=== PATIENT | male | born 1980 | race Caucasian/White ===

== ENCOUNTER 2017-02-04 13:15 | Emergency (ER) | payer OTHER ==
[2017-02-04] MEDS ORDERED: Morphine INJ* 4 MG/ML 1 ML SYRINGE IV ONE ×3 (15:00→20:31)
[2017-02-04] MEDS ORDERED: NS 0.9% 1000 ML* 2,000 ML IV ONE (15:00)
[2017-02-04] MEDS ORDERED: Ondansetron INJ* 2 MG/ML VIAL IV ONE (15:00)
[2017-02-04 15:34] LABS: Hematocrit 47 % (42-52); Hemoglobin 15.7 g/dl (14.0-18.0); Mean Corpuscular HGB Conc 34 g/dl (31-36); Mean Corpuscular Hemoglobin 30 pg (27-31); Mean Corpuscular Volume 90 fL (80-94); Mean Platelet Volume 9 um3 (7.4-10.4); Red Blood Count 5.17 10^6/ul (4.0-5.4); Red Cell Distribution Width 13 % (10.5-15); White Blood Count 12.1 10^3/ul (3.5-10.8)
[2017-02-04 15:49] LABS: BUN/Creatinine Ratio 16.2 (8-20); C Reactive Protein 2.83 mg/L (< 5.00); EGFR African American 167.8 (>60); EGFR Non-African American 130.5 (>60); Globulin 3.1 g/dL (2-4); Potassium 3.9 mmol/L (3.5-5.0); Total Bilirubin 0.6 mg/dL (0.2-1.0); Total Protein 7.1 g/dL (6.4-8.9)
[2017-02-04] MEDS ORDERED: Iohexol 300* (CONTRAST) 10 ML SDV IV ONE (16:00)
--- NOTE | 2017-02-04 18:17 | RAD ---
INDICATION: RIGHT abdomen/flank pain. Blood in stool. Post appendectomy. COMPARISON: November 24, 2011 MRI lumbar sacral spine. TECHNIQUE: Multidetector CT images were obtained from the lung bases to the ischial tuberosities with 150 mL Omnipaque 300 IV and oral contrast. Multiplanar reformation. REPORT: Unremarkable visualized inferior thorax. Unremarkable liver. Mildly distended gallbladder without additional CT finding. Negative for biliary dilatation. Unremarkable pancreas and spleen. Negative for CT abnormality of the upper GI or small bowel. The appendix is not visualized consistent with surgical history. Unremarkable colon with enteric contrast extending to the rectum. Negative for ascites, free air, or significant hernias. Normal adrenal glands. Unremarkable kidneys with symmetric contrast excretion. Unremarkable nondilated ureters. Phlebolith noted adjacent to the distal segment of the RIGHT ureter. Unremarkable urinary bladder and visualized male urogenital structures. Negative for lymphadenopathy. Normal diameter abdominal aorta and iliac arteries. Physiologic distention of the IVC. Degenerative spondylosis and facet joint osteoarthritis most prominent at L4-L5 with resulting moderately severe acquired central canal and bilateral foraminal stenosis. Minimal grade 1 degenerative L4-L5 anterolisthesis. Negative for suspicious focal osseous lesions. IMPRESSION: 1. Post appendectomy. 2. No acute pathologic visceral process of the abdomen or pelvis. 3. Acquired spinal stenosis at L4-L5 with worsening compared with the 2012 MRI.
[2017-02-04 19:21] LABS: Urine Bilirubin Negative (Negative); Urine Glucose Negative (Negative); Urine Nitrite Negative (Negative)
--- NOTE | 2017-02-04 20:36 | ED ---
Aruna Whitney Auryana, scribed for Edmundo Ag MD on 02/04/17 at 1501 . Abdominal Pain/Male - HPI Summary HPI Summary: 36 year old male presents with constant abdominal pain starting 5 days ago. The pain is located at the RUQ/right flank and radiates to the RLQ. Currently the pain is a 9/10. He also has a decreased appetite He denies any fever, chills, scrotal/groin pain, or any hematuria. Per triage patient had "blood in the stool last night" and "uses ibuprofen regularly". PMHx is significant for appendectomy s/p ruptured appendix (as child) and HTN but denies any history of kidney stones. - History of Current Complaint Chief Complaint: EDAbdPain Stated Complaint: ABD PAIN Time Seen by Provider: 02/04/17 14:51 Hx Obtained From: Patient Onset/Duration: Gradual Onset, Still Present Timing: Constant, Lasting Days - 5 Severity Initially: Moderate Severity Currently: Moderate Pain Intensity: 9 Pain Scale Used: 0-10 Numeric Location: Discrete At: RUQ, Flank - right Radiates: Yes Radiates to: RLQ Associated Signs And Symptoms: Positive: Blood in Stool - per triage, Decreased Appetite. Negative: Fever, Urinary Symptoms - Allergies/Home Medications Allergies/Adverse Reactions: Allergies Allergy/AdvReac Type Severity Reaction Status Date / Time Penicillins [PCN] AdvReac Severe Hives Verified 01/19/13 12:30 PMH/Surg Hx/FS Hx/Imm Hx Cardiovascular History: Reports: Hx Hypertension Musculoskeletal History: Reports: Hx Arthritis - Surgical History Surgery Procedure, Year, and Place: appendectomy Infectious Disease History: No Infectious Disease History: Denies: Traveled Outside the [place] in Last 30 Days - Family History Known Family History: Positive: Cardiac Disease - [place] - Social History Occupation: Employed Full-time Lives: With Family Hx Substance Use: No Substance Use Type: Reports: None Hx Tobacco Use: Yes Smoking Status (MU): Light Every Day Tobacco Smoker Review of Systems Constitutional: Negative Negative: Fever, Chills Eyes: Negative ENT: Negative Cardiovascular: Negative Respiratory: Negative Positive: Abdominal Pain, Other - decreased appetite, and per triage - blood in stool Genitourinary: Negative Negative: hematuria Musculoskeletal: Negative Skin: Negative Neurological: Negative Psychological: Normal All Other Systems Reviewed And Are Negative: Yes Physical Exam - Summary Physical Exam Summary: General: well-appearing, moderate pain distress Skin: warm, color reflects adequate perfusion, dry Head: normal Eyes: EOMI, BRITTNEE ENT: normal Neck: supple, nontender Respiratory: CTA, breath sounds present Cardiovascular: RRR Abdomen: soft, Right CVA, RLQ, and RUQ tenderness. Bowel: present - hypoactive Musculoskeletal: normal, strength/ROM intact Neurological: normal, sensory/motor intact, A&O x3 Psychological: affect/mood appropriate Triage Information Reviewed: Yes Vital Signs On Initial Exam: Initial Vitals Temp Pulse Resp BP Pulse Ox 98.7 F 75 20 171/101 98 02/04/17 13:22 02/04/17 13:22 02/04/17 13:22 02/04/17 13:22 02/04/17 13:22 Vital Signs Reviewed: Yes Diagnostics - Vital Signs Vital Signs Temp Pulse Resp BP Pulse Ox 02/04/17 14:46 98.0 F 76 13 129/86 97 02/04/17 13:22 98.7 F 75 20 171/101 98 - Laboratory Lab Results: Lab Results 02/04/17 02/04/17 02/04/17 Range/Units 15:27 15:27 15:27 WBC 12.1 H (3.5-10.8) 10^3/ul RBC 5.17 (4.0-5.4) 10^6/ul Hgb 15.7 (14.0-18.0) g/dl Hct 47 (42-52) % MCV 90 (80-94) fL MCH 30 (27-31) pg MCHC 34 (31-36) g/dl RDW 13 (10.5-15) % Plt Count 190 (150-450) 10^3/ul MPV 9 (7.4-10.4) um3 Neut % (Auto) 67.9 (38-83) % Lymph % (Auto) 22.7 L (25-47) % [place] % (Auto) 6.7 (1-9) % Eos % (Auto) 2.4 (0-6) % Baso % (Auto) 0.3 (0-2) % Absolute Neuts (auto) 8.2 H (1.5-7.7) 10^3/ul Absolute Lymphs (auto) 2.7 (1.0-4.8) 10^3/ul Absolute Monos (auto) 0.8 (0-0.8) 10^3/ul Absolute Eos (auto) 0.3 (0-0.6) 10^3/ul Absolute Basos (auto) 0 (0-0.2) 10^3/ul Absolute Nucleated RBC 0 10^3/ul Nucleated RBC % 0 INR (Anticoag Therapy) 1.01 (0.89-1.11) APTT 29.5 (26.0-36.3) seconds Sodium 137 (133-145) mmol/L Potassium 3.9 (3.5-5.0) mmol/L Chloride 106 (101-111) mmol/L Carbon Dioxide 27 (22-32) mmol/L Anion Gap 4 (2-11) mmol/L BUN 11 (6-24) mg/dL Creatinine 0.68 (0.67-1.17) mg/dL Est GFR ( Amer) 167.8 (>60) Est GFR (Non-Af Amer) 130.5 (>60) BUN/Creatinine Ratio 16.2 (8-20) Glucose 90 (70-100) mg/dL Lactic Acid (0.5-2.0) mmol/L Calcium 9.0 (8.6-10.3) mg/dL Total Bilirubin 0.60 (0.2-1.0) mg/dL AST 15 (13-39) U/L ALT 15 (7-52) U/L Alkaline Phosphatase 43 (34-104) U/L C-Reactive Protein 2.83 (< 5.00) mg/L Total Protein 7.1 (6.4-8.9) g/dL Albumin 4.0 (3.2-5.2) g/dL Globulin 3.1 (2-4) g/dL Albumin/Globulin Ratio 1.3 (1-3) Urine Color Urine Appearance Urine pH (5-9) Ur Specific [place] (1.010-1.030) Urine Protein (Negative) Urine Ketones (Negative) Urine Blood (Negative) Urine Nitrate (Negative) Urine Bilirubin (Negative) Urine Urobilinogen (Negative) Ur Leukocyte Esterase (Negative) Urine Glucose (Negative) 02/04/17 02/04/17 Range/Units 15:27 19:10 WBC (3.5-10.8) 10^3/ul RBC (4.0-5.4) 10^6/ul Hgb (14.0-18.0) g/dl Hct (42-52) % MCV (80-94) fL MCH (27-31) pg MCHC (31-36) g/dl RDW (10.5-15) % Plt Count (150-450) 10^3/ul MPV (7.4-10.4) um3 Neut % (Auto) (38-83) % Lymph % (Auto) (25-47) % [place] % (Auto) (1-9) % Eos % (Auto) (0-6) % Baso % (Auto) (0-2) % Absolute Neuts (auto) (1.5-7.7) 10^3/ul Absolute Lymphs (auto) (1.0-4.8) 10^3/ul Absolute Monos (auto) (0-0.8) 10^3/ul Absolute Eos (auto) (0-0.6) 10^3/ul Absolute Basos (auto) (0-0.2) 10^3/ul Absolute Nucleated RBC 10^3/ul Nucleated RBC % INR (Anticoag Therapy) (0.89-1.11) APTT (26.0-36.3) seconds Sodium (133-145) mmol/L Potassium (3.5-5.0) mmol/L Chloride (101-111) mmol/L Carbon Dioxide (22-32) mmol/L Anion Gap (2-11) mmol/L BUN (6-24) mg/dL Creatinine (0.67-1.17) mg/dL Est GFR ( Amer) (>60) Est GFR (Non-Af Amer) (>60) BUN/Creatinine Ratio (8-20) Glucose (70-100) mg/dL Lactic Acid 1.0 (0.5-2.0) mmol/L Calcium (8.6-10.3) mg/dL Total Bilirubin (0.2-1.0) mg/dL AST (13-39) U/L ALT (7-52) U/L Alkaline Phosphatase (34-104) U/L C-Reactive Protein (< 5.00) mg/L Total Protein (6.4-8.9) g/dL Albumin (3.2-5.2) g/dL Globulin (2-4) g/dL Albumin/Globulin Ratio (1-3) Urine Color Yellow Urine Appearance Clear Urine pH 7.0 (5-9) Ur Specific [place] 1.010 (1.010-1.030) Urine Protein Negative (Negative) Urine Ketones Negative (Negative) Urine Blood Negative (Negative) Urine Nitrate Negative (Negative) Urine Bilirubin Negative (Negative) Urine Urobilinogen Negative (Negative) Ur Leukocyte Esterase Negative (Negative) Urine Glucose Negative (Negative) Result Diagrams: 02/04/17 15:27 02/04/17 15:27 Lab Statement: Any lab studies that have been ordered have been reviewed, and results considered in the medical decision making process. - CT ABD/PEL CT Interpretation: Positive (See Comments) - IMPRESSION: 1. Post appendectomy. 2. No acute pathologic visceral process of the abdomen or pelvis. 3. Acquired spinal stenosis at L4-L5 with worsening compared with the [address] Interpretation Completed By: Radiologist Abdominal Pain Fem Course/Dx - Course Course Of Treatment: NO CRITICAL CARE TIME. DISCUSSED RESULTS WITH PATIENT/ . TENDER TO PALPATION OVER LOW BACK. THE PAIN DOES RADIATE INTO RT BUTTOCK. RX PERCOCET AND FLEXERIL; RETURN IF WORSE. - Diagnoses Provider Diagnoses: Low back pain, Abdominal pain, Flank pain Discharge - Discharge Plan Condition: Stable Disposition: HOME Patient Education Materials: Abdominal Pain (ED), Flank Pain (ED), Back Pain ( ED) Forms: *Work Release Referrals: Selina Hendrix MD [Primary Care Provider] - Additional Instructions: FOLLOW UP WITH YOUR DOCTOR. RETURN TO THE EMERGENCY DEPARTMENT FOR ANY WORSENING OF YOUR CONDITION; PAIN, FEVER, YOU FEEL ILL, WEAKNESS, NUMBNESS OR QUESTIONS OR CONCERNS. The documentation as recorded by the Aruna marin Auryana accurately reflects the service I personally performed and the decisions made by me, Edmundo Ag MD.
[2017-02-04 21:02] VITALS: BP 141/104
== END 2017-02-04 20:58 | disposition home or self-care (01) ==
LOC: ED 13:15
DX: R10.31 Right lower quadrant pain (principal); M54.5 Low back pain; K92.1 Melena
CPT/HCPCS: 36415; 74177; 80053; 81003; 83605; 85025; 85610; 85730; 86140; 96374; 96375; 99282; J2270; J2405; Q9967

== ENCOUNTER 2017-03-01 21:57 | Emergency (ER) | payer OTHER ==
[2017-03-02] MEDS ORDERED: Ketorolac INJ* 60 MG/2 ML VIAL IM ONE (01:02)
[2017-03-02] MEDS ORDERED: Ondansetron ODT TAB* 4 MG PO ONE (01:02)
[2017-03-02] MEDS ORDERED: Methocarbamol TAB* 500 MG PO ONE (01:02)
[2017-03-02] MEDS ORDERED: Dexamethasone TAB* 4 MG PO ONE (01:03)
[2017-03-02] MEDS ORDERED: Morphine INJ* 4 MG/ML 1 ML SYRINGE IM ONE (01:53)
--- NOTE | 2017-03-02 02:57 | ED ---
Back Pain - HPI Summary HPI Summary: 36M presents with back since Thursday. 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 he has history of back pain but this is more generalized. no loss of bowel or bladder or saddle anesthesia. no fever. no pain down the legs. no numbness or tingling. has tried tyenlol. extensive allergy list as everything causes nausea. is able to ambulate fine. - History of Current Complaint Chief Complaint: EDBackInjuryPain Stated Complaint: BACK INJURY Time Seen by Provider: 03/02/17 00:49 Pain Intensity: 10 - Allergies/Home Medications Allergies/Adverse Reactions: Allergies Allergy/AdvReac Type Severity Reaction Status Date / Time Penicillins [PCN] AdvReac Severe Hives Verified 01/19/13 12:30 PMH/Surg Hx/FS Hx/Imm Hx Endocrine/Hematology History: Denies: Hx Diabetes Cardiovascular History: Reports: Hx Hypertension History: Denies: Hx Renal Disease Musculoskeletal History: Reports: Hx Arthritis - Surgical History Surgery Procedure, Year, and Place: appendectomy Infectious Disease History: No Infectious Disease History: Denies: Traveled Outside the [place] in Last 30 Days - Family History Known Family History: Positive: Cardiac Disease - [place] - Social History Alcohol Use: None Hx Substance Use: No Substance Use Type: Reports: None Hx Tobacco Use: Yes Smoking Status (MU): Light Every Day Tobacco Smoker Review of Systems Negative: Fever Negative: Chest Pain Negative: Shortness Of Breath Positive: Myalgia - back All Other Systems Reviewed And Are Negative: Yes Physical Exam Triage Information Reviewed: Yes Vital Signs On Initial Exam: Initial Vitals Temp Pulse Resp BP Pulse Ox 98.6 F 72 22 152/92 97 03/01/17 22:03 03/01/17 22:03 03/01/17 22:03 03/01/17 22:03 03/01/17 22:03 Vital Signs Reviewed: Yes Appearance: Positive: Pain Distress Skin: Positive: Warm, Dry Head/Face: Positive: Normal Head/Face Inspection Eyes: Positive: Normal, EOMI, BRITTNEE, Conjunctiva Clear ENT: Positive: Normal ENT inspection, Pharynx normal, TMs normal Respiratory/Lung Sounds: Positive: Clear to Auscultation, Breath Sounds Present Cardiovascular: Positive: Normal, RRR Musculoskeletal: Positive: Limited @ - back, Other - tenderness across back, neg SLR. good pulses Neurological: Positive: Reflexes Intact - patella Diagnostics - Vital Signs Vital Signs Temp Pulse Resp BP Pulse Ox 03/02/17 02:00 16 03/02/17 00:53 97.9 F 68 16 158/92 98 03/01/17 23:41 98.5 F 73 18 149/97 98 03/01/17 22:03 98.6 F 72 22 152/92 97 - Laboratory Lab Statement: Any lab studies that have been ordered have been reviewed, and results considered in the medical decision making process. - CT back CT Interpretation: Positive (See Comments) - patient status post L4-L5 laminotomoy. disc bulging and posterior element hypertrophy at this level. narros vavanal. MRI necessary CT Interpretation Completed By: Radiologist Back Pain Course/Dx - Course Course Of Treatment: 36M presents with back since Thursday. 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 he has history of back pain but this is more generalized. no loss of bowel or bladder or saddle anesthesia. no fever. no pain down the legs. no numbness or tingling. has tried tyenlol. extensive allergy list as everything causes nausea. is able to ambulate fine. tenderness across back. neg SLR. CT shows narrowing. gave pain medication. patient understands and agrees with plan. - Diagnoses Differential Diagnosis/HQI/PQRI: Positive: Herniated Disc, Strain, Sprain Provider Diagnoses: Back pain Discharge - Discharge Plan Condition: Good Disposition: HOME Prescriptions: oxyCODONE/Acetamin 5/325 MG* [Percocet 5/325 TAB*] 1 tab PO Q8H PRN #9 tab MDD 3 PRN Reason: Pain Patient Education Materials: Back Pain (ED) Referrals: [facility] [place] [facility] [Outside] Selina Hendrix MD [Primary Care Provider] - Additional Instructions: Use ibuprofen or Tylenol for pain every 6 hours, use narcotic for break through pain ice/heat area, move as much as possible Establish care with primary care physician Return to ED if develop any new or worsening symptoms
[2017-03-02] MEDS ORDERED: oxyCODONE/Acetamin 5/325 MG* TAB PO ONE (03:02)
[2017-03-02 03:27] VITALS: BP 150/90
--- NOTE | 2017-03-02 08:06 | RAD ---
HISTORY: Back pain COMPARISONS: MRI dated November 24, 2011, CT of the abdomen and pelvis dated February 04, 2017 TECHNIQUE: Multiple contiguous axial CT scans were obtained of the lumbar spine without intravenous contrast, with coronal and sagittal multiplanar reformations. FINDINGS: SPINAL CANAL: Evaluation of the central canal is limited on CT technique; however, there is no obvious canalicular mass or epidural hemorrhage. ALIGNMENT: The alignment is normal. VERTEBRAL BODIES: There is mild multilevel anterolateral marginal osteophyte formation. JOINTS: There is facet osteoarthritis, most pronounced at L4-L5 and L5-S1 MUSCULATURE: Unremarkable INTERVERTEBRAL DISCS: There is diffuse loss of intervertebral disc height throughout the spine. Vacuum disc phenomenon is noted at L4-L5 AXIAL IMAGES: T12-L1: There is no osseous neural foraminal narrowing or central canal stenosis. L1-L2: There is no osseous neural foraminal narrowing or central canal stenosis. L2-L3: There is no osseous neural foraminal narrowing or central canal stenosis. L3-L4: There is mild disc bulge. There is marginal osteophyte formation at the neural foramina bilaterally. There is bilateral facet hypertrophy. There is moderate right and severe left neural foraminal narrowing. There is mild narrowing of the central canal. L4-L5: There is broad-based disc bulge with a superimposed central disc protrusion measuring 0.5 cm in depth. There is bilateral facet hypertrophy with marginal osteophyte formation at the neural foramina bilaterally. There is severe bilateral neural foraminal narrowing. There is moderate to severe narrowing of the central canal. L5-S1: There is bilateral facet hypertrophy with marginal osteophyte formation at the neural foramina bilaterally. There is moderate bilateral neural foraminal narrowing. There is no significant central canal stenosis. SOFT TISSUES: The visualized soft tissues of the abdomen are unremarkable. OTHER: None IMPRESSION: 1. DEGENERATIVE DISC DISEASE AND OSTEOARTHRITIS. 2. THERE IS A CENTRAL DISC PROTRUSION AT L4-L5. 3. THERE IS MODERATE TO SEVERE NARROWING OF THE CENTRAL CANAL AT L4-L5. THERE IS MULTILEVEL NEURAL FORAMINAL NARROWING DESCRIBED ABOVE.
== END 2017-03-02 03:26 | disposition home or self-care (01) ==
LOC: ED 21:57
DX: M54.9 Dorsalgia, unspecified (principal)
CPT/HCPCS: 72131; 99282; A9270-GY; J1885; J2270; J8540

== ENCOUNTER 2017-05-25 12:43 | Emergency (ER) | payer OTHER ==
[2017-05-25] MEDS ORDERED: NS 0.9% 1000 ML* 2,000 ML IV ONE (14:25)
[2017-05-25] MEDS ORDERED: Ondansetron INJ* 2 MG/ML VIAL IV ONE (14:25)
[2017-05-25] MEDS ORDERED: Morphine INJ* 4 MG/ML 1 ML CARPUJECT IV ONE (14:25)
--- NOTE | 2017-05-25 14:27 | ED ---
Back Pain - HPI Summary HPI Summary: 36 male presents to ED with complaints of low right sided back pain that feels as though it radiates into his right groin for the past 4 days. Patient denies any known trauma or injury, however does do strenuous work as a living. Has chronic back pain and degenerative disc disease with stenosis. Patient states it feels similar but worse. Patient has been taking 1200mg of ibuprofen without relief along with celebrex and flexeril. Has also been going in hot tub. Has not had relief. Denies numbness/tingling, trouble urinating, dysuria, hematuria , saddle anesthesia, weakness, and pain radiating into legs. Pain does radiate into groin and testicles per patient. PMHx significant for chronic back pain and HTN. No other complaints. No abdominal pain. Had appendectomy. Denies fever/ chills, nausea and vomiting. - History of Current Complaint Chief Complaint: EDBackInjuryPain Stated Complaint: RT ABD/GROIN PAIN Time Seen by Provider: 05/25/17 13:15 Hx Obtained From: Patient Onset/Duration: Sudden Onset, Lasting Days, Still Present, Worse Since Onset/Duration: Started Days Ago, Still Present, Worse Since Timing: Constant Back Pain Location: Is Discrete @ - right low back/side Severity Initially: Moderate Severity Currently: Moderate Pain Intensity: 9 Pain Scale Used: 0-10 Numeric Character: Sharp, Aching Aggravating Symptom(s): Movement Alleviating Symptom(s): Rest, Nothing Associated Signs And Symptoms: Positive: Flank Pain. Negative: Swelling, Redness, Bruising, Weakness, Numbness, Tingling, Bladder Incontinence, Bowel Incontinence, Pain with Weight Bearing Related History: Previous Back Injury - Risk Factors Cauda Equina Risk Factors: Negative Epidural Abscess Risk Factors: Negative - Allergies/Home Medications Allergies/Adverse Reactions: Allergies Allergy/AdvReac Type Severity Reaction Status Date / Time Penicillins [PCN] AdvReac Severe Hives Verified 01/19/13 12:30 PMH/Surg Hx/FS Hx/Imm Hx Endocrine/Hematology History: Denies: Hx Diabetes Cardiovascular History: Reports: Hx Hypertension History: Denies: Hx Renal Disease Musculoskeletal History: Reports: Hx Arthritis - Surgical History Surgery Procedure, Year, and Place: appendectomy - Immunization History Immunizations Up to Date: Yes Infectious Disease History: No Infectious Disease History: Denies: Traveled Outside the [place] in Last 30 Days - Family History Known Family History: Positive: Cardiac Disease - [place] - Social History Alcohol Use: None Hx Substance Use: No Substance Use Type: Reports: None Hx Tobacco Use: Yes Smoking Status (MU): Light Every Day Tobacco Smoker Review of Systems Constitutional: Negative Cardiovascular: Negative Respiratory: Negative Positive: Arthralgia, Myalgia Skin: Negative Neurological: Negative All Other Systems Reviewed And Are Negative: Yes Physical Exam Triage Information Reviewed: Yes Vital Signs On Initial Exam: Initial Vitals Temp Pulse Resp BP Pulse Ox 98.6 F 79 20 162/105 98 05/25/17 12:54 05/25/17 12:54 05/25/17 12:54 05/25/17 12:54 05/25/17 12:54 elevated BP, improved once pain improved to 137/82 Vital Signs Reviewed: Yes Appearance: Positive: Well-Appearing, Well-Nourished, Pain Distress - moderate- severe Skin: Positive: Warm, Skin Color Reflects Adequate Perfusion, Dry. Negative: Cold, Cyanosis @, Jaundiced, Pale, Erythema @ Head/Face: Positive: Normal Head/Face Inspection Eyes: Positive: Conjunctiva Clear ENT: Positive: Hearing grossly normal Neck: Positive: Supple, Nontender Respiratory/Lung Sounds: Positive: Clear to Auscultation, Breath Sounds Present. Negative: Decreased Breath Sounds, Rales, Rhonchi, Wheezes Cardiovascular: Positive: Normal, RRR, Pulses are Symmetrical in both Upper and Lower Extremities. Negative: Murmur, Rub Abdomen Description: Positive: Nontender, Soft, CVA Tenderness (R). Negative: Bruit, CVA Tenderness (L), Distended, Guarding, McBurney's Point Tenderness, Peritoneal Signs Bowel Sounds: Positive: Present Male Genital Exam: Positive: normal genitalia Musculoskeletal: Positive: Normal, Strength/ROM Intact, Pain @ - with movement of right LE and at basck L2-L5, Other - no crepitus, step off or obvious deformity, no ecchymosis or edema.. Negative: Limited @, Interruption @, Abnormal @, Edema Left, Edema Right Neurological: Positive: Normal, Sensory/Motor Intact - normal, Alert, Oriented to Person Place, Time, CN Intact II-III, Reflexes Intact, NV Bundle Intact Distally, Normal Gait - [place] Coma Scale Coma Scale Total: 15 Diagnostics - Vital Signs Vital Signs Temp Pulse Resp BP Pulse Ox 05/25/17 12:54 98.6 F 79 20 162/105 98 - Laboratory Result Diagrams: 05/25/17 14:38 05/25/17 14:38 Lab Statement: Any lab studies that have been ordered have been reviewed, and results considered in the medical decision making process. - CT abd/pelvis wo CT Interpretation: No Acute Changes - 1. Negative for urolithiasis or hydronephrosis. 2. Post appendectomy. Colonic diverticulosis without findings of diverticulitis. 3. Negative for hernias. 4. Lumbar sacral spine degenerative spondylosis and facet joint osteoarthritis with moderately severe acquired spinal stenosis at L4-L5 without significant interval change within limits of CT assessment. CT Interpretation Completed By: Radiologist - Ultrasound No standard instances Ultrasound Interpretation: No Acute Changes - 0.4 cm RIGHT epididymis head epididymal cyst or spermatocele without concern. No evidence for testicular torsion, epididymoorchitis, or intratesticular mass. Ultrasound Interpretation Completed By: Radiologist Re-Evaluation - Re-Evaluation First Eval Re-Evaluation Time: 18:00 Change: Improved - had significant relief after medication and fluid. updated on results, ready to be d/c. Back Pain Course/Dx - Course Course Of Treatment: labs obtained and unremarkable. urinalysis obtained and unremarkable. CT abd/pelvis obtained. Appendectomy. No signs of infection, fever , abdominal tenderness or colitis symptoms. Ct showed chronic and mod/severe back stenosis and degenerative disc disease/osteoarthritis. Testicular US obtained and negative for acute findings. Appears to be suffering from acute on chronic back pain. Given pain management and fluids. Had relief. Will be sent home with pain meds, steroid and continue ibuprofen/flexeril. educated on proper use. Follow up with PCP. Ortho/back specialist. Recommend physical therapy. No concern for other etiology such as cauda equina. Aware of worsening signs and symptoms to watch out for. - Diagnoses Differential Diagnosis/HQI/PQRI: Positive: Fracture, Herniated Disc, Strain, Sprain, Other - renal calculi, testicular torsion, epididymitis, hydropnephrosis , pyelonephritis, diverticulitis Provider Diagnoses: Chronic low back pain Discharge - Discharge Plan Condition: Stable Disposition: HOME Prescriptions: Ibuprofen TAB* [Motrin TAB* 600 MG] 600 mg PO Q6H PRN #20 tab PRN Reason: Pain predniSONE TAB* [Deltasone TAB*] 20 mg PO DAILY #3 tab traMADol TAB* [Ultram*] 50 mg PO Q6HR PRN #15 tab MDD 2 PRN Reason: Pain Patient Education Materials: Low Back Strain (ED), Chronic Back Pain (ED) Forms: *Work Release Referrals: [facility] [place] [facility] [Outside] Ja Galicia MD [Medical Doctor] - Additional Instructions: Take prescribed medication as directed. Remember this may hide the pain and to not over due it when taking it. Continue previously prescribed flexeril. Rest and avoid over use. Ice/heat. Make an appointment with PCP and ortho/back specialist for further evaluation and work up. Any new or worsening symptoms, as we discussed, please seek medical attention.
[2017-05-25 14:48] LABS: Hematocrit 46 % (42-52); Hemoglobin 15.7 g/dl (14.0-18.0); Mean Corpuscular HGB Conc 34 g/dl (31-36); Mean Corpuscular Hemoglobin 30 pg (27-31); Mean Corpuscular Volume 88 fL (80-94); Mean Platelet Volume 9 um3 (7.4-10.4); Red Blood Count 5.22 10^6/ul (4.0-5.4); Red Cell Distribution Width 12 % (10.5-15); White Blood Count 11.7 10^3/ul (3.5-10.8)
[2017-05-25 15:02] LABS: ALT 21 U/L (7-52); AST 16 U/L (13-39); Albumin 4.1 g/dL (3.2-5.2); Alkaline Phosphatase 46 U/L (34-104); Anion Gap 5 mmol/L (2-11); BUN/Creatinine Ratio 13.7 (8-20); Blood Urea Nitrogen 10 mg/dL (6-24); C Reactive Protein < 1.00 mg/L (< 5.00); CO2 Carbon Dioxide 27 mmol/L (22-32); Calcium 9.2 mg/dL (8.6-10.3); Chloride 106 mmol/L (101-111); EGFR African American 154.6 (>60); EGFR Non-African American 120.2 (>60); Globulin 3.3 g/dL (2-4); Glucose 112 mg/dL (70-100); Sodium 138 mmol/L (133-145); Total Protein 7.4 g/dL (6.4-8.9)
[2017-05-25] MEDS ORDERED: HYDROmorphone INJ* 2 MG/ML CARPUJECT SYRINGE IV SLOW PU ONE ×2 (15:53→17:44)
--- NOTE | 2017-05-25 16:51 | RAD ---
Indication: RIGHT testicular pain radiating to the back. Comparison: February 04, 2017 CT abdomen. Technique: Scrotal ultrasound. Report: Normal morphology and echotexture 4.2 x 2.2 x 3.0 cm RIGHT testicle and 4.3 x 2.3 x 2.9 cm LEFT testicle. Symmetric normal range testicular vascularity. 1.2 x 1.3 cm RIGHT epididymis head with normal range vascularity is remarkable for a 0.4 cm simple appearing epididymal head cyst or spermatocele. Unremarkable 1.3 x 1.7 cm LEFT epididymis head. Physiologic small volume of bilateral scrotal fluid. No varicocele evident. IMPRESSION: 0.4 cm RIGHT epididymis head epididymal cyst or spermatocele without concern. No evidence for testicular torsion, epididymoorchitis, or intratesticular mass.
--- NOTE | 2017-05-25 17:11 | RAD ---
INDICATION: RIGHT flank and groin pain. Post appendectomy. COMPARISON: Testicular ultrasound of the same date and February 04, 2017 CT. TECHNIQUE: Multidetector CT images were obtained from the lung bases to the ischial tuberosities. Evaluation of the viscera is limited without IV contrast. Multiplanar reformation. REPORT: Unremarkable visualized inferior thorax. Unremarkable unenhanced liver, gallbladder, pancreas, spleen. Negative for CT abnormality of the upper GI or small bowel. The appendix is not visualized consistent with surgical history. Mild diverticulosis of the colon primarily at the sigmoid colon without findings of acute diverticulitis. Negative for ascites, free air, hernias. Normal adrenal glands. Symmetric size kidneys without visualized stones, hydronephrosis, or focal lesions. Negative for perinephric fluid collections. Unremarkable nondilated ureters and moderately distended urinary bladder. Multiple pelvic phleboliths noted including adjacent to the distal ureters. Symmetric seminal vesicles. Negative for lymphadenopathy. Normal diameter abdominal aorta. Physiologic distention of the IVC. Negative for fracture or suspicious focal osseous lesions. Lumbar sacral spine degenerative spondylosis and facet joint osteoarthritis. Moderate disc space narrowing at L4-L5 with vacuum disc phenomenon broad dorsal disc protrusion with resulting moderately severe acquired central canal stenosis without significant change. Moderate bilateral foraminal stenosis at L4-L5 without significant change. IMPRESSION: 1. Negative for urolithiasis or hydronephrosis. 2. Post appendectomy. Colonic diverticulosis without findings of diverticulitis. 3. Negative for hernias. 4. Lumbar sacral spine degenerative spondylosis and facet joint osteoarthritis with moderately severe acquired spinal stenosis at L4-L5 without significant interval change within limits of CT assessment.
[2017-05-25 17:50] LABS: Urine Bilirubin Negative (Negative); Urine Glucose Negative (Negative); Urine Nitrite Negative (Negative)
[2017-05-25 19:03] VITALS: BP 157/97
== END 2017-05-25 19:04 | disposition home or self-care (01) ==
LOC: ED 12:43
DX: M54.5 Low back pain (principal)
CPT/HCPCS: 36415; 74176; 76870; 80053; 81003; 83605; 85025; 86140; 87491; 87591; 96374; 96375; 99282; J1170; J2270; J2405

== ENCOUNTER 2017-07-21 08:02 | Observation (INO) | payer OTHER ==
[~2017-07-21 08:02] MED LIST: Bacitracin IV* 50,000 UNITS INJ ONE; Buffered Lidocaine 0.9% SYRIN* 5 ML/SYR SYRINGE INTRADERM ONE; Dexamethasone IV* 4 MG/ML 1 ML (4 MG) IV SLOW PU ONE; Famotidine IV* 10 MG/ML 2 ML (20 mg) IV ONE; Lidocaine 1% MPF wEPI 200,000* 30 ML SDV ONE; Thrombin 5,000 UNITS* 1 APPLIC KIT - topical use - TOPICAL ONE
[2017-07-21] MEDS ORDERED: Famotidine IV* 10 MG/ML 2 ML (20 mg) ONE (08:18)
[2017-07-21] MEDS ORDERED: Dexamethasone IV* 4 MG/ML 1 ML (4 MG) ONE (08:18)
[2017-07-21] MEDS ORDERED: Buffered Lidocaine 0.9% SYRIN* 5 ML/SYR SYRINGE ONE (08:18)
[2017-07-21] MEDS ORDERED: Clindamycin 900 MG IVPREMIX(* 900 MG/50 ML SDV IV ONE (08:19)
[2017-07-21] MEDS ORDERED: fentaNYL* 50 MCG/ML 2 ML VIAL (100 MCG VIAL) ONE ×3 (10:40→13:50)
[2017-07-21] MEDS ORDERED: Midazolam* 1 MG/ML 2 ML VIAL (2 MG) ONE (10:41)
[2017-07-21] MEDS ORDERED: Succinylcholine* 20 MG/ML 10 ML VIAL ONE (10:44)
[2017-07-21] MEDS ORDERED: Lidocaine 1% INJ* 10 MG/ML 30 ML SDV ONE (10:44)
[2017-07-21] MEDS ORDERED: Glycopyrrolate IV* 0.2 MG/ML 1 ML VIAL ONE (11:54)
[2017-07-21] MEDS ORDERED: Propofol* 10 MG/ML 20 ML BTL IV PUSH ONE (11:54)
[2017-07-21] MEDS ORDERED: Ketorolac INJ* 30 MG/ML 1 ML VIAL ONE (11:54)
[2017-07-21] MEDS ORDERED: Ondansetron INJ* 2 MG/ML VIAL ONE (11:54)
[2017-07-21] MEDS ORDERED: Neostigmine Methylsulfate* 2 MG/2 ML SYRINGE ONE (11:54)
[2017-07-21] MEDS ORDERED: Naloxone* 0.4 MG/ML 1 ML VIAL IV PRN (12:04)
[2017-07-21] MEDS ORDERED: Scopolamine 1.5 mg* PATCH TRANSDERM PRN (12:04)
[2017-07-21] MEDS ORDERED: Metoclopramide IV* 5 MG/ML 2 ML VIAL IV PRN (12:04)
[2017-07-21] MEDS ORDERED: Ondansetron INJ* 2 MG/ML VIAL IV PRN (12:54)
[2017-07-21] MEDS ORDERED: Acetaminophen TAB* 325 MG PO PRN (12:54)
[2017-07-21] MEDS ORDERED: Magnesium Hydroxide LIQ* 30 ML UDC PO PRN (12:54)
[2017-07-21] MEDS: fentaNYL* 50 MCG/ML 2 ML VIAL (100 MCG VIAL) IV PRN ×4 (13:12→13:55)
[2017-07-21] MEDS: HYDROmorphone INJ* 2 MG/ML CARPUJECT SYRINGE IV PRN ×2 (13:27→13:41)
--- NOTE | 2017-07-21 14:36 | RAD ---
Indication: Lumbar disc protrusion at L4-L5. Single lateral view of the lumbar spine taken in the operating room demonstrates localization of the L5-S1 interspace with IMPRESSION: Localization of the L5-S1 disc interspace with a metallic probe.
[2017-07-21] MEDS: oxyCODONE TAB* 5 MG TAB PO PRN ×2 (15:03→19:54)
[2017-07-21] MEDS: Morphine INJ* 4 MG/ML 1 ML CARPUJECT IV PRN ×2 (18:17→23:47)
[2017-07-21] MEDS ORDERED: Mouth Piece, Nicotine* 1 EACH CARTRIDGE INH ONE (21:00)
[2017-07-21] MEDS ORDERED: Nicotine Inhaler* 10 MG AMP Q2H PRN CRAVING INH (21:00)
[2017-07-21] MEDS ORDERED: Amitriptyline TAB* 25 MG PO SCH (21:00)
[2017-07-22] MEDS: oxyCODONE TAB* 5 MG TAB PO PRN ×2 (02:19→07:44)
[2017-07-22] MEDS: Morphine INJ* 4 MG/ML 1 ML CARPUJECT IV PRN ×2 (04:20→08:24)
[2017-07-22 08:47] VITALS: BP 140/76
[2017-07-22] MEDS ORDERED: Omeprazole CAP* 20 MG PO SCH (09:00)
--- NOTE | 2017-07-22 11:54 | PN ---
Progress Note - Progress Note Date of Service: 07/22/17 SOAP: Subjective: [Patient seen and examined 07/22/17 at 0820. Patient unable to determine if pre-op symptoms are improved post-operatively. Complains of low back incisional pain. Able to ambulate without difficulty. Eating and drinking. Denies headache and nausea. Patient and his extremely vocal about his discharge today. His states that she feels as though they have been lied to about the admission and surgery from the initial visit. She is frustrated with his care and states that they are going to go to a real hospital. The patient is concerned with his need for a cigarette. He was offered several nicotine replacement options which he has refused. They are also concerned with the ability to pay for the patient's hospital stay.] Objective: [ Vital Signs: Temp Pulse Resp BP Pulse Ox 97.6 F 58 18 140/76 100 07/22/17 07:55 07/22/17 07:55 07/22/17 08:24 07/22/17 07:55 07/22/17 08:00 Neuro: Motor and sensory intact. Incision: Intact with nelida. No swelling or ecchymosis. Wound drain discontinued today. New dressing placed. Wound drain output 07/21/17 07/21/17 07/21/17 13:01 14:30 17:29 Output, CHESTER #1 70 30 70 07/21/17 07/22/17 07/22/17 22:00 02:14 06:00 Output, CHESTER #1 30 40 20 ] Assessment: [Satisfactory post-op course. Pain controlled with PO pain medication.] Plan: [1. Discharge home today. 2. Discharge instructions discussed with the patient. ]
--- NOTE | 2017-07-24 11:54 | DS ---
DISCHARGE SUMMARY: DATE OF ADMISSION: 07/21/17 DATE OF DISCHARGE: 07/22/17 ATTENDING PHYSICIAN: Dr. Galicia * (dictated by NARGIS Rouse). DISCHARGE DIAGNOSES: 1. Herniated nucleus pulposus at L4-L5 on the left. 2. Hypertension. SPECIAL PROCEDURE: Lumbar diskectomy at L4-L5 on the left. HOSPITAL COURSE: This patient was seen in the office with a history of approximately 2 weeks of left-sided lumbar radiculopathy. A CT of the lumbar spine showed a possible disk displacement at L4-5. An MRI was then obtained for further evaluation which confirmed L4-L5 herniated disk towards the left. Treatment was discussed with the patient and he wished to proceed with elective surgery. On the day of admission, he was taken to surgery where under general anesthesia a lumbar diskectomy at L4-5 on the left operation was carried out. Postoperatively, he was eating, drinking, and voiding without difficulty. He was ambulating independently. Pain was controlled with oral and IV pain medications. He complained of significant low back and persistent left lower extremity pain, although slightly improved since preop. On the first postoperative day, the patient was eager to be discharged. The wound drain was discontinued and the patient was discharged home to the care of his . DISCHARGE INSTRUCTIONS: wound care and activity level were discussed with the patient and provided. FOLLOW UP: He will be seen in the office in approximately 7 to 10 days for a followup. DISCHARGE MEDICATIONS: Oxycodone 10 mg q.6 hours as needed for pain. NARGIS ROUSE [id number]/[facility] #: [id number] [facility]ITALMadeline
--- NOTE | 2017-07-25 04:34 | OP ---
DATE OF OPERATION: 07/21/17 - ROOM #351 DATE OF : 76 PRIMARY SURGEON: Dr. Ja Galicia. ANESTHESIA: General. PRE-OP DIAGNOSES: Lumbar spinal stenosis, L4-5, herniated nucleus pulposus L4- 5 on the left. POST-OP DIAGNOSES: Lumbar spinal stenosis L4-5, herniated nucleus pulposus L4- 5 on the left. OPERATIVE PROCEDURE: Decompressive lumbar laminectomy, L4-5 with lumbar diskectomy, L4-5 on the left with microdissection. DESCRIPTION OF PROCEDURE: After satisfactory general anesthesia was obtained, the patient was placed on the operating table in a prone position with the chest supported on the Favian frame and the back slightly flexed. The lumbar region was clipped, prepped and draped in the sterile manner for lumbar laminectomy and skin incision outlined from L4 to L5. This incision was infiltrated with 1% Xylocaine with epinephrine after which it was turned down sharply to the level of the lumbar fascia. The exposure was noted to be quite deep due to its large size. An intraoperative x-ray was obtained verifying localization of the L5-S1 interspace after which a decompression was carried out at L4-5 by removing the spinous process of L4 with the Leksell rongeur and Tu tool crib manager as well as the superior aspect of the spinous process of L5. 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 A decompression was carried out by thinning out the inferior aspect of the L4 lamina and medial aspect of the facet complex on both sides. The decompression was then carried superiorly until the attachment of the ligamentum flavum was taken down. The patient was noted to have kcpasdzq-si-lqiosh stenosis at this level. The decompression was carried out laterally and inferiorly until both L5 nerve roots were noted to be free in their course. At this point of the procedure, the operating microscope was brought into the field and the remainder of the procedure was done under microscopic visualization. Preoperative imaging had shown a central disk herniation at this level. The L5 nerve root on the left side was noted to be compressed dorsally by this disk material. An opening was made in the posterior longitudinal ligament and the disk space was cleared of any loose disc material with pituitary forceps and curettes. At the conclusion of the decompression, the L5 nerve root was noted to be free in its course. It was felt that a satisfactory decompression had been achieved. After assuring adequate hemostasis, the wound was thoroughly irrigated after which a drain was placed in the epidural space and tunnelled out towards the left side. The fascia was then reapproximated with 0 Vicryl sutures. The subcutaneous tissues were closed with 3-0 Vicryl suture and the skin closed with skin clips. The estimated blood loss was less than 50 cc and the final sponge, padding and needle counts were correct. The patient was taken to the recovery room, extubated and in stable condition. [id number]/[facility] #: [id number] [facility]ENTERMadeline
== END 2017-07-22 09:50 | disposition home or self-care (01) ==
LOC: OR 08:02 → SSU 14:52
PROVIDERS: ADMIT Neurological Surgery; ATTEND Neurological Surgery
DX: M48.062 Spinal stenosis, lumbar region with neurogenic claudication (principal); M51.36 Other intervertebral disc degeneration, lumbar region; M51.26 Other intervertebral disc displacement, lumbar region; M54.9 Dorsalgia, unspecified; M79.606 Pain in leg, unspecified
CPT/HCPCS: 72100; 96374; 96375; A9270-GY; G0378; J0330; J1100; J1170; J1885; J2001; J2250; J2270; J2405; J2704; J3010

== ENCOUNTER 2017-07-30 19:59 | Emergency (ER) | payer OTHER ==
[2017-07-30 20:17] VITALS: BP 147/98
--- OUTSIDE RECORDS SUMMARY | 2017-07-30 20:28 | XMS REPORT ---
:1980 External Reference #:[id number] Author Organization [email or web address] Address [address] [address] Phone [phone] Care Team Providers Name Role Phone Moe Shay DO Primary Care Physician Unavailable Payers Type Date Identification Numbers Payment Provider Subscriber Commercial Effective: Policy Number: [id number] Allan Diane 2010 Group Name: [id number] [address] PayID: [id number] [place] [address] Problems Date Description Provider Status Onset: 2017 Convalescence after surgery Ja Galicia M.D. Active Onset: 07/01/2017 Neurogenic claudication co-occurrent and Ja Galicia M.D. 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 Family History Date Family Member(s) Problem(s) Comments General Cancer General Heart Disease Social History Type Date Description Comments Occupation Currently Working out right now due to pain Occupation Adult High School Instructor ETOH Use Never used alcohol Smoking Patient is a current smoker, smokes every day Recreational Drug Use Denies Drug Use Smoking Heavy tobacco smoker (more than 10 cigarettes/day) Allergies, Adverse Reactions, Alerts Date Description Reaction Status Severity Comments 06/01/2017 Penicillin active 06/01/2017 Hydrocodone active Medications Medication Date Status Form Strength Qnty SIG Indications Ordering Provider Oxycodone HCL 07/01/ Active Tablets 10mg 24tabs 1 by M48.062 Ja Puente mouth Grayson, every 6 M.D. hours as needed pain Vitamin B-2 00/00/ Active Tablets 100mg 4 tab Unknown 0000 daily Hydrochlorothiazide 00/ Active Tablets 12.5mg 1 by Unknown 0000 mouth every day No Active Medications Ja 2016 - Grayson, 07/01/ Carl 2016 Vital Signs Date Vital Result Comment 2017 Height 68 inches 5'8" Weight 270.00 lb Heart Rate 88 /min BP Systolic Sitting 128 mmHg BP Diastolic Sitting 80 mmHg Pain Level 9 BMI (Body Mass Index) 41.0 kg/m2 07/01/2017 Height 68 inches 5'8" Weight 270.00 lb Heart Rate 91 /min BP Systolic Sitting 130 mmHg BP Diastolic Sitting 82 mmHg Pain Level 10 BMI (Body Mass Index) 41.0 kg/m2 Results Description No Information Procedures Date CPT Code Description Status 07/21/2017 84050 Use Of Operating Microscope Completed 07/21/2017 53653 Kaba/Facet/Foraminotomy;Vertebral Segment; Lumbar Completed Encounters Type Date Location Provider CPT E/M Dx Office Visit 07/01/2017 [facility] Ja Galicia M.D. 67591 M51.36 10:20a [facility] M48.062 M51.26 Office Visit 06/01/2017 11:15a [facility] Trina Barbour PA-C 91360 M54.16 [facility] Office Visit 12/31/2011 2:00p [facility] Fred Espinoza, [address] 724.2 [facility] Carl 721.3 Plan of Care Future Appointment(s):08/26/2017 9:30 am - Ja Galicia M.D. at [facility]09/14/2017 10:00 am - Jong Jin M.D. at [facility]2017 - Ja Galicia M.D.Z48.89 Encounter for other specified surgical aftercareFollow up:4 weeks
--- OUTSIDE RECORDS SUMMARY | 2017-07-30 20:29 | XMS REPORT ---
:1980 External Reference #:[id number] Author Organization [facility] Address [address] [place] [address] Phone [phone] Care Team Providers Name Role Phone Moe Shay D.O. 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 Active Onset: 07/27/2017 Long-term current use of opiate Moe Shay D.O. Active analgesic drug Onset: 06/25/2017 Polyneuropathy Moe Shay D.O. Active Social History Type Date Description Comments Work Status 05/27/2017 Currently Working [employer] Allergies, Adverse Reactions, Alerts Date Description Reaction Status Severity Comments 05/27/2017 Acetaminophen / Hydrocodone Urticaria active Mild to Moderate 05/27/2017 Penicillins Urticaria active Moderate Medications Medication Date Status Form Strength Qnty SIG Indications Ordering Provider Acetaminophen 07/27 Active Tablets 500mg 120ta 2 tabs M54.5 marcelino, bs morning Moe, and D.O. night for pain Vitamin B Complex-C 06/29 Active Capsules 180ca 1 by Laurita, ps mouth Moe, twice a D.O. day Hydrochlorothiazide 06/02 Active Capsules 12.5mg 90cap 1 by Laurita, s mouth Moe, every D.O. day Amitriptyline HCL 05/27 Active Tablets 25mg 14tab 1 by M54.6 Laurita s mouth at [place], night D.O. Oxycodone-Acetaminoph 05/27 Active Tablets 7.5-325mg 120ta 1 by Marianne Shay, bs mouth 12 Moe, times a D.O. day for acute back pain HCTZ 05/26 Hx Tablets 12.5mg 90tab 1 by Laurita s mouth Moe, - every D.O. Oxycodone-Acetaminoph 05/26 Hx Tablets 5-325mg 1 every Unknown 4 hours - as 05/27 needed severe pain Ibuprofen 05/26 Hx Tablets 200mg - 05/27 Medications Administered in Office Medication Date Status Form Strength Qnty SIG Indications Ordering Provider B12 Injection Administered Injection Nurse's 017 Schedule SC/Im Administered Injection Nurse's Injections 017 Schedule Vital Signs Date Vital Result Comment 07/27/2017 BP Systolic 142 mmHg BP Diastolic 80 mmHg Weight 270.00 lb with shoes 06/25/2017 BP Systolic 142 mmHg BP Diastolic 78 mmHg Weight 265.00 lb 05/27/2017 BP Systolic 162 mmHg BP Diastolic 98 mmHg Height 68.5 inches w/shoes Weight 258.00 lb BMI (Body Mass Index) 38.7 kg/m2 Results Test Date Test Result H/L Range Note Laboratory test finding 06/25/2017 Vitamin B12 166 pg/mL Low 180-914 1 Hemoglobin A1c (Glyco HGB) 5.3 % 4.0-5.6 2 Comp Metabolic Panel 06/25/2017 Sodium 137 mmol/L 133-145 Potassium 4.3 mmol/L 3.5-5.0 Chloride 107 mmol/L 101-111 Co2 Carbon Dioxide 25 mmol/L 22-32 Anion Gap 5 mmol/L 2-11 Glucose 96 mg/dL 70-100 Blood Urea Nitrogen 13 mg/dL 6-24 Creatinine 0.76 mg/dL 0.67-1.17 BUN/Creatinine Ratio 17.1 8-20 Calcium 8.7 mg/dL 8.6-10.3 Total Protein 6.8 g/dL 6.4-8.9 Albumin 4.0 g/dL 3.2-5.2 Globulin 2.8 g/dL 2-4 Albumin/Globulin Ratio 1.4 1-3 Total Bilirubin 0.30 mg/dL 0.2-1.0 Alkaline Phosphatase 43 U/L 34-104 Alt 20 U/L 7-52 Ast 16 U/L 13-39 Egfr Non- 114.8 >60 Egfr 147.6 >60 3 CBC Auto Diff 06/25/2017 White Blood Count 8.8 10^3/uL 3.5-10.8 Red Blood Count 5.19 10^6/uL 4.0-5.4 Hemoglobin 15.9 g/dL 14.0-18.0 Hematocrit 47 % 42-52 Mean Corpuscular Volume 90 fL 80-94 Mean Corpuscular Hemoglobin 31 pg 27-31 Mean Corpuscular HGB Conc 34 g/dL 31-36 Red Cell Distribution Width 13 % 10.5-15 Platelet Count 249 10^3/uL 150-450 Mean Platelet Volume 9 um3 7.4-10.4 Abs Neutrophils 5.2 10^3/uL 1.5-7.7 Abs Lymphocytes 2.8 10^3/uL 1.0-4.8 Abs Monocytes 0.6 10^3/uL 0-0.8 Abs Eosinophils 0.2 10^3/uL 0-0.6 Abs Basophils 0 10^3/uL 0-0.2 Abs Nucleated RBC 0.01 10^3/uL Granulocyte % 59.3 % 38-83 Lymphocyte % 31.3 % 25-47 Monocyte % 6.7 % 1-9 Eosinophil % 2.2 % 0-6 Basophil % 0.5 % 0-2 Nucleated Red Blood Cells % 0.1 Laboratory test finding 06/25/2017 TSH (Thyroid Stim Horm) 0.88 mcIU/mL 0.34-5.60 Magnesium 2.1 mg/dL 1.9-2.7 Erythrocyte Sed Rate 13 mm/Hr 0-14 C Reactive Protein < 1.00 mg/L < 5.00 4 Connective Tissue Panel 06/25/2017 Anti-Nuclear Antibody 0.4 U 5 Cyclic Citrullinated Peptide 179.1 U 6 Interpretation See Comment 7 Xray 05/27/2017 X-Ray, Thoracic Spine, 2 Views mild osteoarthritis 8 1 Normal Range 180 to 914 Indeterminate Range 145 to 180 Deficient Range <145 2 Therapeutic target for the treatment of diabetes mellitus patients is <7% HBA1C, and in selective patients <6.0%. Please refer to [place] [employer] diabetic care guidelines for further information. 3 Because ethnic data is not always readily available, this report includes an eGFR for both -Americans and non- Americans. The National Kidney Disease Education Program (NKDEP) does not endorse the use of the MDRD equation for patients that are not between the ages of 18 and 70, are , have extremes of body size, muscle mass, or nutritional status, or are non- or non-. According to the National Kidney Foundation, irrespective of diagnosis, the stage of the disease is based on the level of kidney function: Stage Description GFR(mL/min/1.73 m(2)) 1 Kidney damage with normal or decreased GFR 90 2 Kidney damage with mild decrease in GFR 60-89 3 Moderate decrease in GFR 30-59 4 Severe decrease in GFR 15-29 5 Kidney failure <15 (or dialysis) 4 Acute inflammation: >10.00 5 REFERENCE VALUE <=1.0 (Negative) 6 Interpretation: Strong Positive (>=60.0) REFERENCE VALUE <20.0 (Negative) 7 RESULT: Compatible with rheumatoid arthritis. Test Performed by: [address] [address] normal alignment osteophytes at t10 normal disc height. no acute process Procedures Date CPT Code Description Status 07/01/2017 99074 SC/Im Injections Completed 05/27/2017 55555 X-Ray, Thoracic Spine, Ap & Lat Completed Encounters Type Date Location Provider CPT E/M Dx Office Visit 06/25/2017 11:45a Main Office Moe Shay D.O. 21299 M54.6 G63 G96.19 M71.38 Office Visit 05/27/2017 3:00p Main Office Moe Shay D.O. 94239 M54.6 Z79.891 M25.78 Plan of Care 07/27/2017 - Moe Shay D.O.G63 Polyneuropathy in diseases classified [id number] long-term (current) use of opiate cesgxysiwC94.5 Low back painNew Medication:Acetaminophen 500 mgNew Orders:Urine Drug Screen InhouseFollow up:1 week recheck Post op pain. Please take 1 gram of tylenol twice a day in addition to Oxycodone.
== END 2017-07-30 20:24 | disposition left against medical advice (07) ==
LOC: ED 19:59
DX: M54.9 Dorsalgia, unspecified (principal); Z53.21 Procedure and treatment not carried out due to patient leaving prior to being seen by health care provider

== ENCOUNTER 2018-04-01 21:41 | Emergency (ER) | payer OTHER ==
[2018-04-01 23:46] LABS: ABS Basophils 0.1 10^3/ul (0-0.2); ABS Eosinophils 0.3 10^3/ul (0-0.6); ABS Lymphocytes 3.5 10^3/ul (1.0-4.8); ABS Neutrophils 7.9 10^3/ul (1.5-7.7); ABS Nucleated RBC 0 10^3/ul; Eosinophil % 2.5 % (0-6); Hematocrit 43 % (42-52); Hemoglobin 14.9 g/dl (14.0-18.0); Lymphocyte % 27.4 % (25-47); Mean Corpuscular HGB Conc 35 g/dl (31-36); Mean Corpuscular Hemoglobin 31 pg (27-31); Mean Corpuscular Volume 90 fL (80-94); Mean Platelet Volume 9.1 um3 (7.4-10.4); Nucleated Red Blood Cells % 0.2; Platelet Count 180 10^3/ul (150-450); Red Blood Count 4.78 10^6/ul (4.00-5.40); Red Cell Distribution Width 13 % (10.5-15); White Blood Count 12.7 10^3/ul (3.5-10.8)
[2018-04-02 00:03] LABS: EGFR Non-African American 112.5 (>60)
[2018-04-02] MEDS ORDERED: Morphine VIAL* 10 MG/ML 1 ML VIAL IV ONE ×2 (00:41→02:29)
--- NOTE | 2018-04-02 00:51 | ED ---
Back Pain - HPI Summary HPI Summary: 37-year-old male presents with right flank pain for the past 3 days. States it is coming from his upper back. He has a fusion from L5 through L1. He admits to chronic numbness and tingling in his legs. No loss of bowel or bladder. No saddle anesthesias. Denies any fevers. Takes hydromorphone daily. 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 No new injury. States pain is in a different location than normal. He denies any chest pain or shortness breath. No bowel pain. No nausea and vomiting. No urinary symptoms. Has a history of cholecystectomy. is able to ambulate. - History of Current Complaint Chief Complaint: EDChestWallPain Stated Complaint: RT SIDE PAIN Time Seen by Provider: 04/01/18 22:50 Pain Intensity: 10 - Allergies/Home Medications Allergies/Adverse Reactions: Allergies Allergy/AdvReac Type Severity Reaction Status Date / Time acetaminophen Allergy Hives Verified 04/02/18 01:48 Adhesive Tape Allergy Rash Verified 04/01/18 22:05 hydrocodone Allergy Hives Verified 04/02/18 01:48 Penicillins Allergy Hives Verified 04/02/18 01:48 Home Medications: Home Medications HYDROmorphone TAB* [Dilaudid Tab*] 4 mg PO BID PRN 04/02/18 [History Confirmed 04/02/18] PMH/Surg Hx/FS Hx/Imm Hx Endocrine/Hematology History: Denies: Hx Diabetes Cardiovascular History: Reports: Hx Hypertension - on meds Denies: Hx Pacemaker/ICD Respiratory History: Reports: Hx Sleep Apnea - has not been diagnosed yet GI History: Reports: Hx Gastroesophageal Reflux Disease - uses prilosec prn History: Reports: Hx Kidney Stones - approx 18 years old Denies: Hx Renal Disease Musculoskeletal History: Reports: Hx Arthritis Sensory History: Denies: Hx Cataracts, Hx Contacts or Glasses, Hx Hearing Aid Opthamlomology History: Denies: Hx Cataracts, Hx Contacts or Glasses Psychiatric History: Denies: Hx Panic Disorder - Cancer History Hx Chemotherapy: No - Surgical History Surgery Procedure, Year, and Place: appendectomy 16 years old. polyp removal in sinus and remove infection in sinus surgery in [place] 5 years ago Hx Anesthesia Reactions: Yes - was very agressive coming out of surgery and muscles all very tight Infectious Disease History: No Infectious Disease History: Denies: Traveled Outside the [place] in Last 30 Days - Family History Known Family History: Positive: Cardiac Disease - [place] - Social History Alcohol Use: Rare Hx Substance Use: No Substance Use Type: Reports: None Hx Tobacco Use: Yes Smoking Status (MU): Light Every Day Tobacco Smoker Amount Used/How Often: 1/2 ppd smoked since [age] years old Review of Systems Negative: Fever Negative: Chest Pain Negative: Shortness Of Breath Positive: Myalgia - back pain All Other Systems Reviewed And Are Negative: Yes Physical Exam Triage Information Reviewed: Yes Vital Signs On Initial Exam: Initial Vitals Temp Pulse Resp BP Pulse Ox 98.6 F 75 16 181/108 97 04/01/18 21:55 04/01/18 21:55 04/01/18 21:55 04/01/18 21:55 04/01/18 21:55 Vital Signs Reviewed: Yes Appearance: Positive: Well-Appearing Skin: Positive: Warm, Dry Head/Face: Positive: Normal Head/Face Inspection Eyes: Positive: Normal, Conjunctiva Clear ENT: Positive: Pharynx normal Respiratory/Lung Sounds: Positive: Clear to Auscultation, Breath Sounds Present Cardiovascular: Positive: Normal, RRR Abdomen Description: Positive: Nontender, Soft, CVA Tenderness (R) Bowel Sounds: Positive: Present Musculoskeletal: Positive: Limited @ - back, Other - tenderness T10-t12, pos SLR , good pulses Neurological: Positive: Normal Psychiatric: Positive: Normal Diagnostics - Vital Signs Vital Signs Temp Pulse Resp BP Pulse Ox 04/02/18 00:10 63 16 136/89 97 04/01/18 21:55 98.6 F 75 16 181/108 97 - Laboratory Lab Results: Lab Results 04/01/18 04/01/18 04/01/18 Range/Units 23:36 23:36 23:36 WBC 12.7 H (3.5-10.8) 10^3/ul RBC 4.78 (4.00-5.40) 10^6/ul Hgb 14.9 (14.0-18.0) g/dl Hct 43 (42-52) % MCV 90 (80-94) fL MCH 31 (27-31) pg MCHC 35 (31-36) g/dl RDW 13 (10.5-15) % Plt Count 180 (150-450) 10^3/ul MPV 9.1 (7.4-10.4) um3 Neut % (Auto) 61.7 (38-83) % Lymph % (Auto) 27.4 (25-47) % Bureau % (Auto) 7.9 H (0-7) % Eos % (Auto) 2.5 (0-6) % Baso % (Auto) 0.5 (0-2) % Absolute Neuts (auto) 7.9 H (1.5-7.7) 10^3/ul Absolute Lymphs (auto) 3.5 (1.0-4.8) 10^3/ul Absolute Monos (auto) 1.0 H (0-0.8) 10^3/ul Absolute Eos (auto) 0.3 (0-0.6) 10^3/ul Absolute Basos (auto) 0.1 (0-0.2) 10^3/ul Absolute Nucleated RBC 0 10^3/ul Nucleated RBC % 0.2 Sodium 140 (135-145) mmol/L Potassium 4.0 (3.5-5.0) mmol/L Chloride 109 (101-111) mmol/L Carbon Dioxide 25 (22-32) mmol/L Anion Gap 6 (2-11) mmol/L BUN 16 (6-24) mg/dL Creatinine 0.77 (0.67-1.17) mg/dL Est GFR ( Amer) 136.1 (>60) Est GFR (Non-Af Amer) 112.5 (>60) BUN/Creatinine Ratio 20.8 H (8-20) Glucose 98 (70-100) mg/dL Lactic Acid 0.5 (0.5-2.0) mmol/L Calcium 8.9 (8.6-10.3) mg/dL Total Bilirubin 0.20 (0.2-1.0) mg/dL AST 14 (13-39) U/L ALT 13 (7-52) U/L Alkaline Phosphatase 57 (34-104) U/L Troponin I 0.01 (<0.04) ng/mL Total Protein 7.0 (6.4-8.9) g/dL Albumin 4.0 (3.2-5.2) g/dL Globulin 3.0 (2-4) g/dL Albumin/Globulin Ratio 1.3 (1-3) Result Diagrams: 04/01/18 23:36 04/01/18 23:36 Lab Statement: Any lab studies that have been ordered have been reviewed, and results considered in the medical decision making process. - Radiology chest Xray Interpretation: No Acute Changes Radiology Interpretation Completed By: ED Physician - CT thoracic CT Interpretation: No Acute Changes - IMPRESSION: No acute fracture. CT Interpretation Completed By: Radiologist abd CT Interpretation: No Acute Changes - IMPRESSION: No acute findings. Status post appendectomy. Changes involving the lumbar spine, as described above. CT Interpretation Completed By: Radiologist - EKG No standard instances Cardiac Rate: NL EKG Rhythm: Sinus Rhythm EKG Interpretation: normal sinus rhythm Re-Evaluation - Re-Evaluation First Eval Re-Evaluation Time: 01:26 Change: Improved Comment: pain now 7 out of 10 Back Pain Course/Dx - Course Course Of Treatment: 37-year-old male presents with right flank pain for the past 3 days. States it is coming from his upper back. He has a fusion from L5 through L1. He admits to chronic numbness and tingling in his legs. No loss of bowel or bladder. No saddle anesthesias. Denies any fevers. Takes hydromorphone daily. 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 No new injury. States pain is in a different location than normal. He denies any chest pain or shortness breath. No bowel pain. No nausea and vomiting. No urinary symptoms. Has a history of cholecystectomy. is able to ambulate. on exam has tenderness right side of back and CVA tenderness. neurovascular intact. ekg sinus rhythm. d- dimer normal. troponin zero. wbc 12. no left shift. chest xray normal. CT shows no acute findings. istop checked dsp on 03/22 for 14 days so can not give anything. discussed will try muscle relaxer and have follow up with primary. patient understand and agrees with plan. - Diagnoses Differential Diagnosis/HQI/PQRI: Positive: Fracture, Herniated Disc, Other - pyelo Provider Diagnoses: Back pain Discharge - Sign-Out/Discharge Documenting (check all that apply): Patient Departure - Discharge Plan Condition: Good Disposition: HOME Prescriptions: Methocarbamol TAB* [Robaxin 500 MG TAB*] 750 mg PO TID PRN #21 tab PRN Reason: Pain methylPREDNISolone [Medrol Dosepak 4 MG*] 4 mg PO .SEE YADIRA INSTRUCTION #1 packet Patient Education Materials: Back Pain (ED) Referrals: Moe Shay DO [Primary Care Provider] - Additional Instructions: Follow directions on package for Medrol pack Take muscle relaxers three times a day Use ibuprofen or Tylenol for pain every 6 hours ice/heat area, move as much as possible Follow up with primary within 5 days Return to ED if develop any new or worsening symptoms - Billing Disposition and Condition Condition: GOOD Disposition: Home
[2018-04-02] MEDS ORDERED: methylPREDNISolone 125 MG* 2 ML VIAL IV ONE (01:25)
[2018-04-02] MEDS ORDERED: Ketorolac INJ* 30 MG/ML 1 ML VIAL IV PUSH ONE (01:25)
--- NOTE | 2018-04-02 02:20 | RAD ---
EXAM: CT Thoracic Spine Without Intravenous Contrast CLINICAL HISTORY: 37 years old, male; Pain; Pain in thoracic spine; Other: Ddd; Patient HX: Lssp rodding per pt for ddd; Additional info: Pain in upper back TECHNIQUE: Axial computed tomography images of the thoracic spine without intravenous contrast. All CT scans at this facility use at least one of these dose optimization techniques: automated exposure control; mA and/or kV adjustment per patient size (includes targeted exams where dose is matched to clinical indication); or iterative reconstruction. Coronal and sagittal reformatted images were created and reviewed. COMPARISON: TSP WO MRI THORACIC SPINE W/O 06/24/2017 7:08 PM FINDINGS: Vertebrae: Schmorl's node defects are seen involving T7, T8, and T9. Spondylosis is demonstrated at T11-12. No acute fracture. Discs/spinal canal/neural foramina: No acute findings. No spinal canal stenosis. Soft tissues: Unremarkable. IMPRESSION: No acute fracture.
--- NOTE | 2018-04-02 02:27 | RAD ---
EXAM: CT Abdomen and Pelvis Without Intravenous Contrast CLINICAL HISTORY: 37 years old, male; Pain; Abdominal pain; Flank; Right; Prior surgery; Surgery date: 6+ months; Surgery type: Appy; Additional info: Right side flank pain TECHNIQUE: Axial computed tomography images of the abdomen and pelvis without intravenous contrast. All CT scans at this facility use at least one of these dose optimization techniques: automated exposure control; mA and/or kV adjustment per patient size (includes targeted exams where dose is matched to clinical indication); or iterative reconstruction. Coronal and sagittal reformatted images were created and reviewed. COMPARISON: A/P WO CT ABD/PEL W/O 05/25/2017 4:18 PM FINDINGS: Lung bases: Unremarkable. No mass. No consolidation. ABDOMEN: Liver: Unremarkable. Gallbladder and bile ducts: Unremarkable. No calcified stones. No ductal dilation. Pancreas: Unremarkable. No ductal dilation. Spleen: Unremarkable. No splenomegaly. Adrenals: Unremarkable. No mass. Kidneys and ureters: Unremarkable. No obstructing stones. No hydronephrosis. Stomach and bowel: Unremarkable. No obstruction. No mucosal thickening. PELVIS: Appendix: The patient is status post appendectomy. Bladder: Unremarkable. No stones. Reproductive: Unremarkable as visualized. ABDOMEN and PELVIS: Intraperitoneal space: Unremarkable. No free air. No significant fluid collection. Bones/joints: There is narrowing of the intervertebral disc spaces at L3-4-5. Vacuum phenomenon is seen involving the intervertebral disc at L4-5. There is approximately 2 mm anterior spondylolisthesis of L4 in relationship to L5. The patient is status post laminectomy involving L4. No acute fracture. No dislocation. Soft tissues: Unremarkable. Vasculature: Arteriosclerotic changes are identified. No abdominal aortic aneurysm. Lymph nodes: Unremarkable. No enlarged lymph nodes. IMPRESSION: No acute findings. Status post appendectomy. Changes involving the lumbar spine, as described above.
[2018-04-02] MEDS ORDERED: Methocarbamol TAB* 500 MG PO ONE (02:33)
[2018-04-02 03:03] VITALS: BP 130/88
--- NOTE | 2018-04-02 08:01 | RAD ---
Indication: Chest pain. 2 views of the chest including dual energy PA views demonstrates no mediastinal shift. Heart is of normal size and configuration. Lung appear clear. IMPRESSION: No active cardiopulmonary disease is noted. R0
== END 2018-04-02 03:00 | disposition home or self-care (01) ==
LOC: ED 21:41
DX: M54.9 Dorsalgia, unspecified (principal); I10 Essential (primary) hypertension; F17.210 Nicotine dependence, cigarettes, uncomplicated
CPT/HCPCS: 36415; 71046; 72128; 74176; 80053; 83605; 84484; 85025; 85379; 93005; 96374; 99282; A9270-GY; J1885; J2270; J2930

== ENCOUNTER 2018-08-06 12:45 | Emergency (ER) | payer OTHER ==
[2018-08-06 13:54] VITALS: BP 161/102
--- NOTE | 2018-08-06 14:13 | UC ---
Dental HPI - HPI Summary HPI Summary: 38-year-old male 38-year-old male comes in with a chief complaint of dental pain and swelling. Started the right lower last evening. It's been spreading ever since. Pain is severe. Been using Orajel which initially was helping but is no longer helping with the pain. Chewing makes the pain worse. No fevers or chills. - History of Current Complaint Chief Complaint: UCDentalProblem Stated Complaint: DENTAL CONCERN Time Seen by Provider: 08/06/18 14:04 Pain Intensity: 10 - Allergies/Home Medications Allergies/Adverse Reactions: Allergies Allergy/AdvReac Type Severity Reaction Status Date / Time acetaminophen Allergy Hives Verified 08/06/18 13:54 Adhesive Tape Allergy Rash Verified 08/06/18 13:54 hydrocodone Allergy Hives Verified 08/06/18 13:54 Penicillins Allergy Hives Verified 08/06/18 13:54 Home Medications: Home Medications Benzocaine [Oral Analgesic] 1 applic TOPICAL Q4HR PRN 08/06/18 [History Confirmed 08/06/18] Vitamin B Complex [Super B-50 Complex] 1 each PO DAILY 08/06/18 [History Confirmed 08/06/18] hydroCHLOROthiazide [Hydrochlorothiazide] 12.5 mg PO DAILY 08/06/18 [History Confirmed 08/06/18] PMH/Surg Hx/FS Hx/Imm Hx Previously Healthy: Yes - Surgical History Surgical History: Yes Surgery Procedure, Year, and Place: appendectomy 16 years old. polyp removal in sinus and remove infection in sinus surgery in [place] 5 years ago - Family History Known Family History: Positive: Cardiac Disease - [place] - Social History Alcohol Use: None Substance Use Type: None Smoking Status (MU): Light Every Day Tobacco Smoker Amount Used/How Often: 1 ppd smoked since [age] years old Household Exposure Type: Cigarettes Review of Systems All Other Systems Reviewed And Are Negative: Yes Constitutional: Positive: Negative Skin: Positive: Negative Eyes: Positive: Negative ENT: Positive: Dental Pain Respiratory: Positive: Negative Cardiovascular: Positive: Negative Gastrointestinal: Positive: Negative Motor: Positive: Negative Neurovascular: Positive: Negative Musculoskeletal: Positive: Negative Neurological: Positive: Negative Psychological: Positive: Negative Is Patient Immunocompromised?: No Physical Exam Triage Information Reviewed: Yes Appearance: Well-Appearing, Well-Nourished, Pain Distress - mild Vital Signs: Initial Vital Signs Temp 98.8 F 08/06/18 13:50 Pulse 85 08/06/18 13:50 Resp 18 08/06/18 13:50 BP 161/102 08/06/18 13:50 Pulse Ox 96 08/06/18 13:50 Vital Signs Reviewed: Yes Eye Exam: Normal Eyes: Positive: Conjunctiva Clear ENT: Positive: Pharynx normal, TMs normal, Dental tenderness, Uvula midline. Negative: Trismus, Muffled voice, Hoarse voice Dental: Positive: Gross Decay/Caries @ - rt lower, Abscess @ - rt lower Neck exam: Normal Neck: Positive: Supple Respiratory: Positive: Lungs clear, Normal breath sounds, No respiratory distress Cardiovascular: Positive: RRR Musculoskeletal Exam: Normal Musculoskeletal: Positive: Strength Intact, ROM Intact Neurological Exam: Normal Neurological: Positive: Alert, Muscle Tone Normal Psychological Exam: Normal Psychological: Positive: Normal Response To Family, Age Appropriate Behavior Skin Exam: Normal Dental Complaint Course/Dx - Differential Dx/Diagnosis Provider Diagnosis: Dental abscess Discharge - Sign-Out/Discharge Documenting (check all that apply): Patient Departure All imaging exams completed and their final reports reviewed: No Studies - Discharge Plan Condition: Stable Disposition: HOME Prescriptions: Clindamycin Cap(NF) [Clindamycin Cap 300 mg Cap(NF)] 300 mg PO Q6H #40 cap oxyCODONE TAB* [Roxycodone TAB 5 mg*] 5 mg PO Q4H PRN #20 tab MDD 6 PRN Reason: Pain Patient Education Materials: Dental Abscess (ED) Referrals: Moe Shay DO [Primary Care Provider] - Additional Instructions: FOLLOW UP WITH YOUR DENTIST. GET RECHECKED FOR ANY WORSENING OF YOUR CONDITION OR QUESTIONS OR CONCERNS. - Billing Disposition and Condition Condition: STABLE Disposition: Home
== END 2018-08-06 14:17 | disposition home or self-care (01) ==
LOC: UCCORT 12:45
DX: K04.7 Periapical abscess without sinus (principal); F17.210 Nicotine dependence, cigarettes, uncomplicated; Z88.6 Allergy status to analgesic agent; Z88.5 Allergy status to narcotic agent; Z88.0 Allergy status to penicillin; Z88.8 Allergy status to other drugs, medicaments and biological substances
CPT/HCPCS: 99212; G0463

== ENCOUNTER 2018-12-11 17:58 | Emergency (ER) | payer SELFPAY ==
[2018-12-11 18:15] VITALS: BP 132/98
[2018-12-11] MEDS ORDERED: Tetracaine 0.5% OPTH.SOL 4 ML* 1 DROP BTL LEFT EYE ONE (18:20)
[2018-12-11] MEDS ORDERED: Fluorescein Sodium TOPICAL* 1 MG TEST STRIP OPHTHALMIC ONE (18:20)
--- NOTE | 2018-12-11 18:31 | UC ---
Eye Complaint HPI - HPI Summary HPI Summary: C/O FB left lateral cornea since last night. Tried to get it out with a q-tip. - History of Current Complaint Chief Complaint: UCEye Stated Complaint: LT EYE COMPLAINT Time Seen by Provider: 12/11/18 18:20 Hx Obtained From: Patient Onset/Duration: Sudden Onset, Lasting Days - 1, Still Present Timing: Constant Severity Initially: Moderate Severity Currently: Moderate Pain Intensity: 0 Location of Injury: Globe - cornea Character: Sharp, Foreign Body Sensation Alleviating Factor(s): Nothing Associated Signs And Symptoms: Positive: Photophobia Related History: Diagnosed As: - foreign body, Foreign Body - Risk Factors Penetrating Injury Risk Factor: Negative Globe Rupture Risk Factors: Negative Acute Glaucoma Risk Factors: Negative - Allergies/Home Medications Allergies/Adverse Reactions: Allergies Allergy/AdvReac Type Severity Reaction Status Date / Time acetaminophen Allergy Hives Verified 12/11/18 18:06 Adhesive Tape Allergy Rash Verified 12/11/18 18:06 hydrocodone Allergy Hives Verified 12/11/18 18:06 Penicillins Allergy Hives Verified 12/11/18 18:06 ibuprofen Allergy Bleeding Uncoded 12/11/18 18:09 PMH/Surg Hx/FS Hx/Imm Hx Cardiovascular History: Hypertension - Surgical History Surgical History: Yes Surgery Procedure, Year, and Place: appendectomy 16 years old. polyp removal in sinus and remove infection in sinus surgery in [place] 5 years ago - Family History Known Family History: Positive: Cardiac Disease - [place], Hypertension - Social History Occupation: Employed Full-time Lives: With Family Alcohol Use: None Substance Use Type: None Smoking Status (MU): Light Every Day Tobacco Smoker Amount Used/How Often: 1 ppd smoked since [age] years old Household Exposure Type: Cigarettes - Immunization History Most Recent Tetanus Shot: UTD per pt Review of Systems All Other Systems Reviewed And Are Negative: Yes Eyes: Positive: Eye Redness, Photophobia Is Patient Immunocompromised?: No Physical Exam Triage Information Reviewed: Yes Appearance: Well-Appearing, Pain Distress, Obese Vital Signs: Initial Vital Signs Temp 98.3 F 12/11/18 18:09 Pulse 65 12/11/18 18:09 Resp 20 12/11/18 18:09 BP 132/98 12/11/18 18:09 Pulse Ox 97 12/11/18 18:09 Vital Signs Reviewed: Yes Eyes: Positive: Conjunctiva Inflamed, Other: - visible corneal FB left lateral cornea. After FB removal, flourescein positive uptake at the FB site. Neck exam: Normal Respiratory Exam: Normal Cardiovascular Exam: Normal Musculoskeletal Exam: Normal Neurological Exam: Normal Psychological Exam: Normal Skin Exam: Normal Procedures - Eye Procedure Left Alcaine Drops Administered: Yes Eye FB Removal: removal w/ needle Eye Complaint Course/Dx - Differential Dx/Diagnosis Differential Diagnosis/HQI/PQRI: Conjunctivitis, Corneal Abrasion, Foreign Body , Keratitis Provider Diagnosis: Corneal FB (foreign body) Discharge - Sign-Out/Discharge Documenting (check all that apply): Patient Departure All imaging exams completed and their final reports reviewed: No Studies - Discharge Plan Condition: Stable Disposition: HOME Patient Education Materials: Eye Foreign Body (ED), Erythromycin (Into the eye) Referrals: Moe Shay DO [Primary Care Provider] - Additional Instructions: EYE OINTMENT USE: Wash hands. Place 1/4" strip across tip of finger. Pull lower lid down with the index finger and stabilize the ointment finger with the middle finger and scrape the ointment off on the lid. Pull the lid out and let go as you look down. - Billing Disposition and Condition Condition: STABLE Disposition: Home
[2018-12-11] MEDS ORDERED: Erythromycin OPTH OINT* APPLIC OINT LEFT EYE ONE (18:42)
== END 2018-12-11 18:51 | disposition home or self-care (01) ==
LOC: UCCORT 17:58
DX: T15.02XA Foreign body in cornea, left eye, initial encounter (principal); X58.XXXA Exposure to other specified factors, initial encounter; Y92.9 Unspecified place or not applicable; Z88.6 Allergy status to analgesic agent; Z88.5 Allergy status to narcotic agent; Z88.0 Allergy status to penicillin; Z91.048 Other nonmedicinal substance allergy status; F17.200 Nicotine dependence, unspecified, uncomplicated
CPT/HCPCS: 65220; 99212; A9270-GY; G0463

== ENCOUNTER 2019-07-31 14:54 | Emergency (ER) | payer OTHER ==
[2019-07-31 15:35] VITALS: BP 160/111
--- NOTE | 2019-07-31 16:35 | UC ---
Back Pain HPI - HPI Summary HPI Summary: C/O upper middle back pain since pulling on a cable on Thursday. Sharp cramping pain. H/O back surgery. Has been taking flexeril without benefit. - History of Current Complaint Chief Complaint: UCBackPain Stated Complaint: RT SIDE BACK PAIN Time Seen by Provider: 07/31/19 16:28 Hx Obtained From: Patient Onset/Duration: Sudden Onset, Lasting Days - 2, Still Present Severity Initially: Severe Severity Currently: Severe Pain Intensity: 8 Back Pain: Is Discrete @ - right flank Character: Sharp, Spasmodic Aggravating Factor(s): Movement Alleviating Factor(s): Nothing Associated Signs And Symptoms: Positive: Flank Pain. Negative: Redness, Bruising, Fever, Weakness, Numbness, Bladder Incontinence, Bowel Incontinence Related History: Previous Back Injury - H/O back surgery - Allergies/Home Medications Allergies/Adverse Reactions: Allergies Allergy/AdvReac Type Severity Reaction Status Date / Time acetaminophen Allergy Hives Verified 07/31/19 15:35 Adhesive Tape Allergy Rash Verified 07/31/19 15:35 hydrocodone Allergy Hives Verified 07/31/19 15:35 Penicillins Allergy Hives Verified 07/31/19 15:35 ibuprofen Allergy Bleeding Uncoded 07/31/19 15:35 PMH/Surg Hx/FS Hx/Imm Hx Cardiovascular History: Hypertension - Surgical History Surgical History: Yes Surgery Procedure, Year, and Place: appendectomy 16 years old. polyp removal in sinus and remove infection in sinus surgery in [place] 5 years ago. low back surgery-2017 - Family History Known Family History: Positive: Cardiac Disease - [place], Hypertension, Diabetes - Social History Occupation: Employed Full-time Lives: With Family Alcohol Use: None Substance Use Type: None Smoking Status (MU): Light Every Day Tobacco Smoker Amount Used/How Often: 1 ppd smoked since [age] years old Household Exposure Type: Cigarettes - Immunization History Most Recent Tetanus Shot: UTD per pt Review of Systems All Other Systems Reviewed And Are Negative: Yes Musculoskeletal: Positive: Arthralgia - right flank Is Patient Immunocompromised?: No Physical Exam Triage Information Reviewed: Yes Appearance: Well-Appearing, Pain Distress - moderate, Obese Vital Signs: Initial Vital Signs Temp 98.3 F 07/31/19 15:30 Pulse 76 07/31/19 15:30 Resp 16 07/31/19 15:30 BP 160/111 07/31/19 15:30 Pulse Ox 97 07/31/19 15:30 Vital Signs Reviewed: Yes Neck exam: Normal Respiratory Exam: Normal Cardiovascular Exam: Normal Musculoskeletal Exam: Normal Musculoskeletal: Positive: Other: - Tenderness in the right erector spinus vs latissimus Neurological Exam: Normal - Patellar DTR 2+, negative SLR, Other - pinprick sensation normal up and down the thoracic spine. Psychological Exam: Normal Skin Exam: Normal Back Pain Course/Dx - Differential Dx/Diagnosis Differential Diagnosis/HQI/PQRI: Cauda Equina Syndrome, Epidural Abscess, Strain , Sprain Provider Diagnosis: Strain of muscle and tendon of back wall of thorax, initial encounter, Cramp and spasm, Hypertension Discharge ED - Sign-Out/Discharge Documenting (check all that apply): Patient Departure All imaging exams completed and their final reports reviewed: No Studies - Discharge Plan Condition: Stable Disposition: HOME Prescriptions: Magnesium Oxide TAB* [MagOx 400 TAB*] 400 mg PO BID #60 tab Oxycodone HCl/Acetaminophen [Percocet 5-325 mg Tablet] 1 each PO Q4HR #14 tablet MDD 6 Patient Education Materials: Muscle Strain (ED), Muscle Spasm (ED), Oxycodone/ Acetaminophen (By mouth) Referrals: Moe Shay DO [Primary Care Provider] - Additional Instructions: Minimize use of the oxycodone to avoid addiction. Push fluids. - Billing Disposition and Condition Condition: STABLE Disposition: Home
== END 2019-07-31 17:08 | disposition home or self-care (01) ==
LOC: UCCORT 14:54
DX: S29.012A Strain of muscle and tendon of back wall of thorax, initial encounter (principal); R25.2 Cramp and spasm; I10 Essential (primary) hypertension; F17.210 Nicotine dependence, cigarettes, uncomplicated; X58.XXXA Exposure to other specified factors, initial encounter; Y92.9 Unspecified place or not applicable; Z88.0 Allergy status to penicillin; Z88.5 Allergy status to narcotic agent; Z88.6 Allergy status to analgesic agent; Z91.09 Other allergy status, other than to drugs and biological substances
CPT/HCPCS: 99212; G0463

== ENCOUNTER 2019-10-05 17:42 | Emergency (ER) | payer OTHER ==
[2019-10-05 17:52] VITALS: BP 156/93
--- NOTE | 2019-10-05 18:05 | UC ---
Dental HPI - HPI Summary HPI Summary: Pt presents with c/o sudden onset of left side cheek swelling and tenderness. Pt states he has "bad teeth" and has been trying to get in to see his dental provider and have the "tooth pulled". - History of Current Complaint Chief Complaint: UCDentalProblem Stated Complaint: DENTAL Time Seen by Provider: 10/05/19 17:48 Hx Obtained From: Patient Onset/Duration: Sudden Onset, Lasting Days, Still Present Severity: Moderate Pain Intensity: 8 Aggravating Factor(s): Heat, Cold, Chewing Alleviating Factor(s): Nothing Related History: Previous Dental Care on Same Tooth, Swelling - Allergies/Home Medications Allergies/Adverse Reactions: Allergies Allergy/AdvReac Type Severity Reaction Status Date / Time acetaminophen Allergy Hives Verified 10/05/19 17:52 Adhesive Tape Allergy Rash Verified 10/05/19 17:52 hydrocodone Allergy Hives Verified 10/05/19 17:52 Penicillins Allergy Hives Verified 10/05/19 17:52 ibuprofen Allergy Bleeding Uncoded 10/05/19 17:52 Home Medications: Home Medications Vitamin B Complex [Super B-50 Complex] 1 each PO DAILY 08/06/18 [History Confirmed 10/05/19] hydroCHLOROthiazide [Hydrochlorothiazide] 12.5 mg PO DAILY 08/06/18 [History Confirmed 10/05/19] Magnesium Oxide TAB* [MagOx 400 TAB*] 400 mg PO BID #60 tab 07/31/19 [Rx Confirmed 10/05/19] Clindamycin Cap(NF) [Clindamycin Cap 300 mg Cap(NF)] 300 mg PO Q6H #40 cap 10/04 [Rx] PMH/Surg Hx/FS Hx/Imm Hx Previously Healthy: Yes - Surgical History Surgical History: Yes Surgery Procedure, Year, and Place: appendectomy 16 years old. polyp removal in sinus and remove infection in sinus surgery in [place] 5 years ago. low back surgery-2017 - Family History Known Family History: Positive: Cardiac Disease - [place], Hypertension, Diabetes - Social History Occupation: Unemployed Lives: With Family Alcohol Use: None Substance Use Type: None Smoking Status (MU): Light Every Day Tobacco Smoker Amount Used/How Often: 1 ppd smoked since [age] years old Have You Smoked in the Last Year: Yes Household Exposure Type: Cigarettes - Immunization History Most Recent Tetanus Shot: UTD per pt Vaccination Up to Date: Yes Review of Systems All Other Systems Reviewed And Are Negative: Yes Constitutional: Positive: Negative Skin: Positive: Negative Eyes: Positive: Negative ENT: Positive: Dental Pain Respiratory: Positive: Negative Cardiovascular: Positive: Negative Gastrointestinal: Positive: Negative Genitourinary: Positive: Negative Motor: Positive: Negative Neurovascular: Positive: Negative Musculoskeletal: Positive: Negative Neurological/Mental Status: Positive: Negative Psychological: Positive: Negative Is Patient Immunocompromised?: No Physical Exam Triage Information Reviewed: Yes Appearance: Pain Distress, Other: - unkempt Vital Signs: Initial Vital Signs Temp 100 F 10/05/19 17:50 Pulse 95 10/05/19 17:50 Resp 18 10/05/19 17:50 BP 156/93 10/05/19 17:50 Pulse Ox 97 10/05/19 17:50 Vital Signs Reviewed: Yes Eye Exam: Normal ENT: Positive: Hearing grossly normal Dental: Positive: Gross Decay/Caries @, Dental Fracture @, Abscess @ Neck: Positive: Nontender Respiratory: Positive: No respiratory distress Musculoskeletal Exam: Normal Neurological Exam: Normal Psychological Exam: Normal Skin Exam: Normal Dental Complaint Course/Dx - Differential Dx/Diagnosis Differential Diagnosis/Dx: Dental Abscess, Dental Caries, Fractured Tooth Provider Diagnosis: Dental abscess Discharge ED - Sign-Out/Discharge Documenting (check all that apply): Patient Departure All imaging exams completed and their final reports reviewed: No Studies - Discharge Plan Condition: Stable Disposition: HOME Prescriptions: Clindamycin Cap(NF) [Clindamycin Cap 300 mg Cap(NF)] 300 mg PO Q6H #40 cap Patient Education Materials: Dental Abscess (ED) Referrals: [facility] [Outside] - If Needed No Primary Care Phys,NOPCP [Primary Care Provider] - Additional Instructions: Please follow up with your Dental care as soon as possible. - Billing Disposition and Condition Condition: STABLE Disposition: Home - Attestation Statements Provider Attestation: This patient was not seen by me. I was available for consult. Chart reviewed. ANJANA
== END 2019-10-05 18:07 | disposition home or self-care (01) ==
LOC: UCCORT 17:42
DX: K04.7 Periapical abscess without sinus (principal); K02.9 Dental caries, unspecified; Z88.6 Allergy status to analgesic agent; Z88.5 Allergy status to narcotic agent; Z88.0 Allergy status to penicillin; Z91.048 Other nonmedicinal substance allergy status; F17.200 Nicotine dependence, unspecified, uncomplicated
CPT/HCPCS: 99212; G0463